=== PATIENT | male | born 1985 ===

== ENCOUNTER 2018-06-12 21:45 | Emergency (ER) | payer OTHER ==
--- NOTE | 2018-06-12 22:01 | EDPHY ---
H & P Time Seen by Provider: 06/12/18 21:56 HPI/ROS: CHIEF COMPLAINT: Finger lacerations HISTORY OF PRESENT ILLNESS: The patient is a 32-year-old male who presents emergency department after cutting his left index and 2nd digit with a knife. The patient was at work as a cook. Patient still has sensation on his fingers. Bleeding is controlled. Tetanus status is up-to-date. No allergies to medications. REVIEW OF SYSTEMS: Negative Past medical history: Noncontributory Physical Exam: Vitals noted General Appearance: Alert and no distress. Head: Pupils equal. Normal. Respiratory: No respiratory distress. Cardiac: regular rate and rhythm. Extremities: The patient has a laceration on his left index finger and his left middle finger. Left index finger: There is a 1 cm laceration on the lateral aspect of the distal phalanx. Full range of motion. No visible tendon injury. No visible foreign body. Neurovascular intact distally. Left middle finger: There is a 1 cm laceration on the lateral aspect of the distal phalanx. Full range of motion. No visible tendon injury. No visible foreign body. Neurovascular intact distally. Skin: Normal color. Neuro: Alert. Normal mood and affect. Constitutional: Initial Vital Signs Temperature (C) 36.9 C 06/12/18 21:59 Heart Rate 93 06/12/18 21:59 Respiratory Rate 20 06/12/18 21:59 Blood Pressure 137/91 H 06/12/18 21:59 O2 Sat (%) 93 06/12/18 21:59 O2 Delivery Mode Room Air Allergies/Adverse Reactions: No Known Allergies Allergy (Unverified 06/12/18 21:59) Home Medications: Medication Instructions Recorded NK [No Known Home Meds] 06/12/18 Medical Decision Making Procedures: #1 Left index finger. Procedure: Laceration repair. Verbal consent was obtained from the patient. The 1 cm laceration on the left index was anesthetized in the usual fashion. The wound was irrigated, draped and explored to its base with a gloved finger. There were no deep structures involved. No tendon injury was identified. The wound was repaired with nylon sutures. The wound repair was simple. The procedure was performed by myself. #2 Left middle finger. Procedure: Laceration repair. Verbal consent was obtained from the patient. The 1 cm laceration on the left middle was anesthetized in the usual fashion. The wound was irrigated, draped and explored to its base with a gloved finger. There were no deep structures involved. No tendon injury was identified. The wound was repaired with nylon sutures. The wound repair was simple. The procedure was performed by myself. ED Course/Re-evaluation: In the emergency department I discussed possible etiologies with the patient. official court interpreter was used. Patient's wounds were anesthetized, cleaned and repaired. The patient was given wound care instructions. He was given warnings prior to leaving. He will return with worsening symptoms. Departure - Departure Disposition: Home, Routine, Self-Care Clinical Impression: Laceration Finger laceration Qualifiers: Encounter type: initial encounter Finger: index finger Damage to nail status: without damage Foreign body presence: without foreign body Laterality: left Qualified Code(s): S61.211A - Laceration without foreign body of left index finger without damage to nail, initial encounter Condition: Good Instructions: Care For Your Stitches (ED), Laceration (ED) Additional Instructions: Wound Care Follow-Up: Removal of sutures in 7 -8 days. Suture removal is complimentary in uncomplicated cases. Infection or abnormal findings would require reevaluation by the MD. In that case, you may be billed. Keep your wound clean and dry. Referrals: Work Comp Referral [facility] [Outside] - 5-7 days, if not improved
[2018-06-12] MEDS ORDERED: HYDROCOD/APAP 5/325 PREPACK#6 BTL TAKEHOME ONE (22:47)
[2018-06-12] MEDS ORDERED: BACITRACIN OINTMENT 1 PACKET TP ONE (22:49)
[2018-06-12 23:08] VITALS: BP 132/66
== END 2018-06-12 23:08 | disposition home or self-care (01) ==
LOC: CED 21:45
PROC: 0HQGXZZ Repair Left Hand Skin, External Approach (ICD-10-PCS; principal; 2018-06-12)
DX: S61.211A Laceration without foreign body of left index finger without damage to nail, initial encounter (principal); S61.213A Laceration without foreign body of left middle finger without damage to nail, initial encounter; W26.0XXA Contact with knife, initial encounter; Y92.511 Restaurant or cafe as the place of occurrence of the external cause; Y93.G1 Activity, food preparation and clean up; Y99.0 Civilian activity done for income or pay